=== PATIENT | male | born 1960 | race Caucasian/White ===

== ENCOUNTER 2024-03-30 03:48 | Observation (INO) | payer OTHER ==
[~2024-03-30] VITALS: Ht 180.3 cm; Wt 86.0 kg
[2024-03-30 04:08] VITALS: BP 148/104
[2024-03-30] MEDS ORDERED: Nitroglycerin 0.4 MG SUBL SL PRN (04:25)
[2024-03-30] MEDS ORDERED: Ondansetron HCl 2 MG / ML 2ML Vial IV PRN (04:25)
[2024-03-30] MEDS ORDERED: Acetaminophen 325 MG TABLET PO PRN (04:40)
[2024-03-30] MEDS ORDERED: Lactated Ringer's 1,000 ML IV SCH (05:00)
[2024-03-30 05:16] LABS: BASOPHILS ABSOLUTE AUTO 0.03 K/mm3 (0.00-0.23); BASOPHILS PERCENT AUTO 1 % (0-2); EOSINOPHILS ABSOLUTE AUTO 0.28 K/mm3 (0.00-0.68); EOSINOPHILS PERCENT AUTO 6 % (0-6); Hematocrit 38.7 % (37.0-53.0); Hemoglobin 13.3 g/dL (13.5-17.5); IMMATURE GRAN ABSOLUTE AUTO 0.01 K/mm3 (0.00-0.10); IMMATURE GRAN PERCENT AUTO 0 % (0-1); LYMPHOCYTES ABSOLUTE AUTO 2.66 K/mm3 (0.84-5.20); LYMPHOCYTES PERCENT AUTO 52 % (21-46); MONOCYTES ABSOLUTE AUTO 0.65 K/mm3 (0.16-1.47); MONOCYTES PERCENT AUTO 13 % (4-13); Mean Corpuscular HGB 30.9 pg (26.0-34.0); Mean Corpuscular HGB Conc 34.4 g/dL (31.5-36.5); Mean Corpuscular Volume 90 fL (80-100); Mean Platelet Volume 8.8 fL (9.1-12.4); NEUTROPHILS ABSOLUTE AUTO 1.47 K/mm3 (1.96-9.15); NEUTROPHILS PERCENT AUTO 29 % (41-73); Platelet Count 196 K/mm3 (150-400); RDW Standard Deviation 42.9 fL (35.1-46.3); Red Blood Cell Count 4.31 M/mm3 (4.30-5.90)
[2024-03-30 05:33] LABS: Prothrombin Time Results 11.7 Sec (9.7-11.5)
[2024-03-30 05:35] LABS: Anti-Xa UFH, PHA Monitoring >1.50 IU/mL
[2024-03-30] MEDS ORDERED: Heparin Sodium 5000 Units/ML 1ML MDV IV ONE (05:40)
[2024-03-30] MEDS ORDERED: Heparin Sodium,Porcine/0.5 NS 500 ML IV SCH (05:40)
[2024-03-30 05:46] LABS: Alanine Aminotransfer (ALT/SGP 20 U/L (12-78); Albumin, Blood 3.4 g/dL (3.4-5.0); Albumin/Globulin Ratio 1.1 (0.8-1.8); Alk Phos 60 U/L (50-136); Anion Gap 11 mmol/L (3-11); Aspartate Aminotrans (AST/SGOT 14 U/L (12-37); Bilirubin, Total 0.4 mg/dL (0.1-1.0); Blood Urea Nitrogen 11 mg/dL (8-24); Bun/Creatinine Ratio 11.4 (12.0-20.0); CHOL/HDL RATIO 4.7; CO2, Blood 23 mmol/L (21-32); Calcium, Blood 7.9 mg/dL (8.5-10.1); Chloride, Blood 113 mmol/L (98-108); Cholesterol 191 mg/dL (50-200); Creatinine, Blood 0.96 mg/dL (0.60-1.20); Glomerular Filtration Rate 90 (60-); Glucose, Blood 98 mg/dL (70-99); HDL Cholesterol 41 mg/dL (>39); LDL/HDL RATIO 3.2; Low Density Lipoprotein Chol 130 mg/dL (0-110); Magnesium, Blood 2.1 mg/dL (1.6-2.4); Potassium, Blood 3.5 mmol/L (3.5-5.5); Sodium, Blood 143 mmol/L (136-145); Total Protein, Blood 6.4 g/dL (6.4-8.2); Triglycerides 98 mg/dL (30-160); Very Low Density Lipoprot Chol 19 mg/dL (6-32)
--- NOTE | 2024-03-30 07:07 | NUR ---
PATIENT WAS A DIRECT ADMIT FROM [place]. PATIENT WAS ADMITTED FOR CHEST PAIN. PATIENT HAS NO CHEST PAIN AT THIS TIME. NURSING ADMISSION COMPLETED. ORIENTED TO ROOM. PT IS INDEPENDANT IN ROOM. AWAITING ADMISSION BY HOSPITALIST.
[2024-03-30 07:45] VITALS: BP 131/95
[2024-03-30] MEDS ORDERED: Aspirin 81 MG Chew PO SCH (09:00)
[2024-03-30] MEDS ORDERED: Potassium Chloride 20 MEQ TabCR PO ONE (10:00)
[2024-03-30] MEDS ORDERED: Carvedilol 3.125 MG Tab PO SCH (10:00)
[2024-03-30] MEDS ORDERED: ELIQUIS5 M2 PO (13:15)
[2024-03-30] MEDS ORDERED: METO25ER PO (14:14)
[2024-03-30] MEDS ORDERED: PANT40 PO (14:15)
[2024-03-30 14:39] VITALS: BP 117/83
[2024-03-30] MEDS ORDERED: Atorvastatin 10 MG Tab PO SCH (18:00)
--- NOTE | 2024-03-30 18:12 | NUR ---
SHIFT SUMMARY: PT A/O X4. PLEASANT AND COOPERATIVE WITH CARE. INDEPENDENT IN ROOM. NO C/O CHEST PAIN THIS SHIFT. PT COMPLETED FIRST PART OF STRESS TEST TODAY. SECOND PORTION TO BE COMPLETED TOMORROW. CALL FROM TELE THIS AM STATING PT RHYHTM WAS JUMPING BETWEEN SINUS RHYHTM AND AFIB SEVERAL TIMES. DR. HUTTON NOTIFIED OF RHYTHM SHIFT. EKG OBTAINED AND PLACED IN CHART. PT CURRENTLY IN SINUS RHYHTM WITH A HR IN 50'S. CALL LIGHT IN REACH. BED IN LOWEST POSITION.
[2024-03-30 20:16] VITALS: BP 114/76
[2024-03-31 04:27] VITALS: BP 101/65
[2024-03-31] MEDS ORDERED: Dose Adjust by Pharmacy XX STA (05:04)
--- NOTE | 2024-03-31 06:41 | NUR ---
SHIFT SUMMARY PATIENT IS ALERT AND ORIENTED TO ALL. FULL CODE. PLEASANT AND COOPERATIVE WITH CARE. PATIENT IS INDEPENDENT IN THE ROOM. NO COMPLAINTS OF CHEST PAIN DURING THIS SHIFT. PATIENT IS DUE TO COMPLETE STRESS TEST TODAY. PATIENT CALLS APPROPRIATELY. CALL LIGHT IS WITHIN REACH, AND BED IS IN THE LOWEST POSITION. ALL INFORMATION WILL BE REPORTED TO ONCOMING AM NURSE. NO ACUTE CHANGES DURING THIS SHIFT.
[2024-03-31 07:20] VITALS: BP 127/80
[2024-03-31] MEDS ORDERED: Enoxaparin 40 MG/0.4 ML SYR SC SCH (09:00)
[2024-03-31 12:19] LABS: BASOPHILS ABSOLUTE AUTO 0.02 K/mm3 (0.00-0.23); BASOPHILS PERCENT AUTO 1 % (0-2); EOSINOPHILS ABSOLUTE AUTO 0.16 K/mm3 (0.00-0.68); EOSINOPHILS PERCENT AUTO 4 % (0-6); Hematocrit 37.8 % (37.0-53.0); Hemoglobin 13.2 g/dL (13.5-17.5); IMMATURE GRAN ABSOLUTE AUTO 0.01 K/mm3 (0.00-0.10); IMMATURE GRAN PERCENT AUTO 0 % (0-1); LYMPHOCYTES PERCENT AUTO 43 % (21-46); MONOCYTES ABSOLUTE AUTO 0.38 K/mm3 (0.16-1.47); MONOCYTES PERCENT AUTO 10 % (4-13); Mean Corpuscular HGB Conc 34.9 g/dL (31.5-36.5); Mean Corpuscular Volume 89 fL (80-100); Mean Platelet Volume 8.9 fL (9.1-12.4); NEUTROPHILS ABSOLUTE AUTO 1.52 K/mm3 (1.96-9.15); NEUTROPHILS PERCENT AUTO 41 % (41-73); Platelet Count 178 K/mm3 (150-400); RDW Standard Deviation 42.5 fL (35.1-46.3); Red Blood Cell Count 4.26 M/mm3 (4.30-5.90); White Blood Cell Count 3.69 K/mm3 (4.00-11.30)
[2024-03-31] MEDS ORDERED: Regadenoson 0.4 MG/5 ML SYRINGE ONE (13:24)
[2024-03-31 14:38] VITALS: BP 134/87
[2024-03-31] MEDS ORDERED: Enoxaparin 100 MG/ML 1ML SYR SC SCH (18:00)
--- NOTE | 2024-03-31 18:36 | NUR ---
REPORT RECEIVED VERIFIED, PT A/O VERY PLEASENT AND COOPERATIVE AND IS ABLE TO MAKE NEEDS KNOWN. WHITNEY CARDIAC TEST HELD TODAY BECAUSE PT HAD COFFEE SO IS RESCHEDULED FOR THE MORNING. MD AWARE. HEPARIN STOPPED PER MD, PT SITTING QUIETLY IN BED HAS NO COMPLAINTS.
[2024-03-31 19:54] VITALS: BP 126/87
[2024-04-01 04:52] VITALS: BP 118/75
--- NOTE | 2024-04-01 05:25 | NUR ---
SHIFT SUMMARY: Pt is admitted for chest pain and is a full code. Is alert and able to make needs known. Has been independent for ADLs. denies pain or discomfort when asked. Telly reports sinus in the 60s. Has been NPO starting at midnight due to a pending procedure in the morning.
[2024-04-01 07:30] VITALS: BP 123/81
[2024-04-01] MEDS ORDERED: Regadenoson 0.4 MG/5 ML SYRINGE ONE (08:28)
[2024-04-01] MEDS ORDERED: Aminophylline 250MG / 10ML 10 ML Vial ONE (08:28)
[2024-04-01] MEDS ORDERED: ATOR20 PO (13:03)
[2024-04-01] MEDS ORDERED: ACET325 PO (13:04)
--- NOTE | 2024-04-01 13:44 | NUR ---
pt discharged PT WAS GIVEN DC INSTRUCTIONS FROM ANAID DESAI. THE PT DECLINED A WHELLCHAIR [place]ORT AND AMBULATED OUT ACCOMPANIED BY HIS SO. THE PT WAS STEADY ON HIS FEET.
--- NOTE | 2024-04-01 14:34 | NUR ---
DISCHARGE SUMMARY PATIENT COMPLETED STRESS TEST THIS AM. DISCHARGED HOME WITH SPOUSE TO DRIVE. IV'S REMOVED PRIOR WITHOUT COMPLICATION. STATED TO HAVING PCP IN [place] AND WILL DO FOLLOW UP IN 1-2 WEEKS THERE. DISCHARGE PACKET GIVEN AND REVIEWED, VERBALIZED UNDERSTANDING.
[2024-04-01] MEDS ORDERED: Apixaban 5 MG Tab PO SCH (19:00)
== END 2024-04-01 13:45 | disposition home or self-care (01) ==
LOC: MEDS 03:48
PROVIDERS: ADMIT Student in an Organized Health Care Education/Training Program
DX: I48.0 Paroxysmal atrial fibrillation (principal); E78.5 Hyperlipidemia, unspecified; R07.89 Other chest pain; Z79.01 Long term (current) use of anticoagulants
CPT/HCPCS: 36415; 78452; 80053; 80061; 82947; 83036; 83735; 83880; 84443; 84484; 85025; 85520; 85610; 85730; 93005; 93010; 93017; 96372; 96374; 96376; A9270; A9500; G0378; G0379; J0280; J1644; J1650; J2785; J7120